=== PATIENT | female | born 1950 | race African-American/Black ===

== ENCOUNTER 2016-06-14 08:00 | Outpatient (RCR) | payer OTHER ==
[~2016-06-14 08:00] MED LIST: BLACK COHOSH40 MG PO; CALCIUM 600MG+D1 TAB PO; FERROUS SULFATE65 MG PO; MASON NATURAL1200 MG PO; MULTI VITAMINS1 TAB PO; PHARMASSURE GA500 MG PO; VITAMIN A10k; VITAMIN C500 MG PO
== END 2016-07-05 | disposition home or self-care (01) ==
LOC: WSST
DX: R13.13 Dysphagia, pharyngeal phase (principal); R74.0 Nonspecific elevation of levels of transaminase and lactic acid dehydrogenase [LDH]

== ENCOUNTER 2017-10-03 08:45 | Outpatient (RCR) | payer MEDICARE, OTHER | END 2017-10-23 | disposition home or self-care (01) | LOC: WSST | DX: K22.4 Dyskinesia of esophagus (principal); R13.12 Dysphagia, oropharyngeal phase; M33.20 Polymyositis, organ involvement unspecified | CPT/HCPCS: G8996-GN; G8997-GN ==

== ENCOUNTER 2017-12-25 10:00 | Outpatient (RCR) | payer MEDICARE, OTHER | END 2018-01-22 | disposition home or self-care (01) | LOC: WSST | DX: R13.12 Dysphagia, oropharyngeal phase (principal); M33.20 Polymyositis, organ involvement unspecified; K22.4 Dyskinesia of esophagus ==

== ENCOUNTER 2022-06-27 20:17 | Observation (INO) | payer MEDICARE, OTHER ==
[~2022-06-27] VITALS: Ht 160 cm; Wt 60.5 kg
[2022-06-27 22:50] VITALS: BP 111/77; PULSE 102; TEMP 98.6
[2022-06-27] MEDS ORDERED: COZAAR100 MG PO (23:01)
[2022-06-27] MEDS ORDERED: PREDNISONE5 MG/5 M1 PO (23:01)
[2022-06-27] MEDS ORDERED: IMURAN 50MG TAB50 MG PO (23:02)
--- NOTE | 2022-06-28 00:15 | NUR ---
Admitted to medical floor from [facility] ER-- did come here via private car, Admitted with RUL PNA, cough, VSS, afebrile , on RA, has INT to left wrist. Has PORT that is used for her monday weekly chemotherapy. Daughter at her bedside. Corina ODONNELL called- will be up to write orders. Did have 2gm Cefipime IV in the ER at [facility].
[2022-06-28 03:09] VITALS: BP 147/80; PULSE 79; TEMP 97.4
--- NOTE | 2022-06-28 05:42 | NUR ---
Quiet night- o2 sats 95% on RA, afebrile, Up to bathroom-voiding clear yellow urine.IV fluids of NS at 75CC/hr.
[2022-06-28 06:45] LABS: BASO % 0.9 % (0.0-2.0); EOS % 0.4 % (0.0-4.0); GRAN # 1.6 K/mm3 (1.4-6.5); GRAN % 67.8 % (42.2-75.2); HEMATOCRIT 37.4 % (37.0-47.0); HEMOGLOBIN 12.5 g/dl (12.5-16.0); LYMPH # 0.6 K/mm3 (1.2-3.4); LYMPH % 25.2 % (20.0-51.0); MEAN CELL VOLUME 92 fl (80.0-100.0); MEAN CORPUSCULAR HEMOGLOBIN 31 pg (27-31); MEAN CORPUSCULAR HGB CONC 33 g/dl (33.0-37.0); MEAN PLATELET VOLUME 11.2 fl (7.4-10.4); MONO # 0.1 K/mm3 (0.1-0.6); MONO % 4.8 % (1.7-9.3); PLATELET COUNT 252 K/mm3 (130-400); RED BLOOD COUNT 4.08 M/mm3 (4.10-5.30); REDCELL DISTRIBUTION WIDTH-CV 15.9 % (11.5-14.5)
[2022-06-28 06:47] LABS: CALCIUM 8.9 mg/dL (8.4-10.2); CREATININE, serum 0.55 mg/dL (0.57-1.11); MAGNESIUM 2.1 mg/dL (1.6-2.6); POTASSIUM 3.7 mmol/L (3.5-4.5)
[2022-06-28 07:00] VITALS: BP 131/74; PULSE 74; TEMP 98.2
[2022-06-28] MEDS ORDERED: TAXOL30 IV (08:52)
--- NOTE | 2022-06-28 11:02 | NUR ---
Patient resting with eyes closed in bed. Shift assessment completed. Lungs diminished bilaterally in bases. Oxygen sat 96% on RA. No complaints of SOA, difficulty breathing, or pain. Port to L chest is CDI, IV on L forearm is CDI w/ no redness, swelling, or drainage. Patient does not display any needs or concerns at this time.
[2022-06-28 11:15] VITALS: BP 115/68; PULSE 93; TEMP 98.1
--- NOTE | 2022-06-28 12:11 | NUR ---
Initial visit: Pt was resting and content. Pt has no needs right now. Pt appreciated the visit. Special Effects Designer will follow up as needed
--- NOTE | 2022-06-28 14:36 | NUR ---
Program Assistant met with patient to discuss discharge plan. Patient lives alone in [place]. Patient goes to [facility] for primary care and medications. Patient advised she sees Dr. Acevedo. Patient also uses [facility] in for medications as needed. Patient does not use any DME and is independent with ADLS. Patient advised her sister, Tim (ph#[phone]) is her DPOA-HC. Patient plans to return home at time of discharge. Discharge Plan: Home
[2022-06-28 15:10] VITALS: BP 111/69; PULSE 80; TEMP 98.5
[2022-06-28 20:01] VITALS: BP 122/72; PULSE 83; TEMP 98.9
[2022-06-29 00:09] VITALS: BP 151/83; PULSE 69; TEMP 99
[2022-06-29 04:15] VITALS: BP 136/78; PULSE 73; TEMP 98.9
--- NOTE | 2022-06-29 05:12 | NUR ---
AT THE BEGINNING OF THE SHIFT THE PATIENT WAS COMPLAINING OF PAIN AT HER IV SITE. RN GOT A NEW IV SITE IN L FOREARM. AND OLD IV WAS REMOVED. WHEN RN WAS CONNECTING THE PATIENT BACK UP TO HER FLUIDS THE PATIENT STATED SHE HAD A PORT AND THAT THE ER NURSES TOLD THE PATIENT THAT THE PORT COULD NOT BE USED HERE IT IS ONLY FOR CHEMO. THIS RN TOLD THE PATIENT THAT WE SHOULD BE ABLE TO USE THE PORT SO NEXT TIME SHE NEEDS A NEW ACCESS TO MAKE SURE SHE MENTINONS IT. PT ABLE TO AMBULATE WITH STAND BY ASSIST TO THE RESTROOM OVERNIGHT, VITAL SIGNS REMAINED WITHIN NORMAL LIMITS. PT DENIED PAIN. NO NEW REQUESTS AT THIS TIME AND PATIENT APPEARS TO CURRENTLY BE SLEEPING.
[2022-06-29 07:15] VITALS: BP 132/77; PULSE 63; TEMP 98
[2022-06-29 07:27] LABS: BASO % 0.5 % (0.0-2.0); EOS % 0.9 % (0.0-4.0); GRAN # 1.2 K/mm3 (1.4-6.5); HEMOGLOBIN 11.7 g/dl (12.5-16.0); LYMPH # 0.7 K/mm3 (1.2-3.4); LYMPH % 34.4 % (20.0-51.0); MEAN CELL VOLUME 91 fl (80.0-100.0); MEAN CORPUSCULAR HEMOGLOBIN 31 pg (27-31); MEAN CORPUSCULAR HGB CONC 33 g/dl (33.0-37.0); MONO # 0.2 K/mm3 (0.1-0.6); MONO % 9.3 % (1.7-9.3); PLATELET COUNT 244 K/mm3 (130-400); RED BLOOD COUNT 3.83 M/mm3 (4.10-5.30)
[2022-06-29 07:33] LABS: CALCIUM 8.8 mg/dL (8.4-10.2); CREATININE, serum 0.54 mg/dL (0.57-1.11); MAGNESIUM 1.9 mg/dL (1.6-2.6); POTASSIUM 3.9 mmol/L (3.5-4.5)
--- NOTE | 2022-06-29 07:40 | NUR ---
Patient resting with eyes closed in bed. Shift assessment completed. Lungs diminished in the bases bilaterally. Patients oxygen sat was 100% on RA w/ no pain or difficulty breathing. IV in L forearm is CDI with no redness, swelling, or drainage. Patient has no complaints at this time, call light left within reach.
[2022-06-29] MEDS ORDERED: AMOXICILLIN 8751 TAB PO (09:06)
--- NOTE | 2022-06-29 10:32 | NUR ---
Pt assessment complete. Pt is sitting up in the recliner upon entry, she is A/O x4. Her breathing is even and unlabored on RA. Pt denies SOB. No pain at this time. Denies any N/V. Pt discharging home today. POC discussed with patient. Call light within reach.
[2022-06-29 11:12] VITALS: BP 126/79; PULSE 80; TEMP 97.5
--- NOTE | 2022-06-29 12:26 | NUR ---
Discharge paperwork and instructions reviewed with patient, all questions answered at this time. IV to LFA dc'd cathter tip intact. Pt wheeled out of facility at this time.
== END 2022-06-29 12:27 | disposition home or self-care (01) ==
LOC: MEDICAL 20:17
PROVIDERS: Student in an Organized Health Care Education/Training Program; ADMIT Internal Medicine
DX: D70.9 Neutropenia, unspecified (principal); C50.919 Malignant neoplasm of unspecified site of unspecified female breast; A41.9 Sepsis, unspecified organism; J18.1 Lobar pneumonia, unspecified organism; H66.92 Otitis media, unspecified, left ear; C79.9 Secondary malignant neoplasm of unspecified site; R50.81 Fever presenting with conditions classified elsewhere; I10 Essential (primary) hypertension; Z79.899 Other long term (current) drug therapy
CPT/HCPCS: OP; G0378; G0379; J0692; J1650; J7030; J7512

== ENCOUNTER 2022-08-24 22:15 | Inpatient (IN) | payer MEDICARE, OTHER ==
[~2022-08-24] VITALS: Ht 160 cm; Wt 57.8 kg
[~2022-08-24 22:15] MED LIST changes: +AMOXICILLIN 8751 TAB PO; +COZAAR100 MG PO; +IMURAN 50MG TAB50 MG PO; +PREDNISONE5 MG/5 M1 PO; +TAXOL30 IV
--- NOTE | 2022-08-24 23:05 | NUR ---
Patient arrived to room 319 via stretcher from [facility]. Oriented to room/policy. VS stable. A&Ox3. Denies pain/nausea/shortness of breath at rest. States she does get short of breath with activity. O2@2L/NC. Admission assessment complete. INT to left [id number] without difficulty. Plan of care discussed for this shift to include meds/calling for questions/concerns. Verbalizes understanding. Call light in reach. Will monitor.
[2022-08-24 23:10] VITALS: BP 117/71; PULSE 82; TEMP 98.1
[2022-08-24] MEDS ORDERED: L-GLUTAMINE500 M5 PO (23:21)
[2022-08-24] MEDS ORDERED: ALPHA LIPOIC A600 M1 PO ×2 (23:23→23:57)
[2022-08-24] MEDS ORDERED: IMURAN 50MG TAB50 MG PO (23:42)
[2022-08-24] MEDS ORDERED: ZOFRAN8 MG PO (23:42)
[2022-08-24] MEDS ORDERED: LIDODERM 5% PATC1 EA TP (23:54)
[2022-08-24] MEDS ORDERED: COZAAR100 MG PO (23:55)
[2022-08-25] VITALS (9 sets, daily range): BP systolic 99–121; BP diastolic 52–69; PULSE 63–82; TEMP 97.6–98.3
--- NOTE | 2022-08-25 02:43 | NUR ---
Vancomycin Initial Dosing Pharmacy Note Ordering provider: Reji Alfredo MD Indication/duration: PNA x 7 days Relevant comorbidities: HTN, metastatic breast CA LABS: CTA - SCr = 0.44 from OSH (Capped at 0.7), multifocal ground glass opacities, O2 = 96% on 2L Recommendation: Will draw troughs and follow levels. Loading dose: 1.25 grams Maintenance dose: 750 mg every 12 hours Trough goal: 15-20 ug/mL
[2022-08-25 04:11] LABS: COLLECTION METHOD CLEAN CATCH
[2022-08-25 04:15] LABS: SQUAMOUS EPITHELIAL 0-2 /hpf (0-10); URINE APPEARANCE Clear (CLEAR/HAZY); URINE BACTERIA Rare /hpf (NONE SEEN); URINE COLOR Yellow (YELLOW)
[2022-08-25 04:16] LABS: PH 5.5 (5.0-8.5); URINE BLOOD Negative (NEGATIVE); URINE GLUCOSE Negative (NEGATIVE); URINE KETONE Negative (NEGATIVE); URINE NITRATE Negative (NEGATIVE); URINE PROTEIN(semi-quant) TRACE (NEGATIVE)
--- NOTE | 2022-08-25 05:48 | NUR ---
Patient had an uneventful night. O2@2L/NC with adequate SpO2. Denied pain/nausea. Short of breath with activity. TELE reporting SR> Left AC INT flushes well-no s/s of infiltration noted. Denies current questions/concerns. Call light in reach. Will monitor.
--- NOTE | 2022-08-25 08:48 | NUR ---
NIRAJ met with the patient to discuss discharge plan. The patient lives alone in [place]. She reports independence with ADLs and does not have any DME. She shares that she still works as a play ground shipping and receiving supervisor at [employer]. The patient's PCP is Dr. Peck on [address] and she obtains her medications on [address] or [facility]. The patient's DPOA-HC is in EMR and it designates her sister, Tim (ph#[phone]). Tim lives in [place]. The patient plans to return home upon discharge. She states that she does have good friend support that can transport her home upon discharge. No additional needs at this time. *Discharge plan: home*
[2022-08-25 10:18] LABS: HEMATOCRIT 38.3 % (37.0-47.0); HEMOGLOBIN 12.6 g/dl (12.5-16.0); MEAN CELL VOLUME 95 fl (80.0-100.0); MEAN CORPUSCULAR HEMOGLOBIN 31 pg (27-31); MEAN CORPUSCULAR HGB CONC 33 g/dl (33.0-37.0); MEAN PLATELET VOLUME 10.4 fl (7.4-10.4); PLATELET COUNT 511 K/mm3 (130-400); RED BLOOD COUNT 4.05 M/mm3 (4.10-5.30); REDCELL DISTRIBUTION WIDTH-CV 17.2 % (11.5-14.5)
[2022-08-25 10:27] LABS: CALCIUM 9.7 mg/dL (8.4-10.2); CREATININE, serum 0.72 mg/dL (0.57-1.11)
--- NOTE | 2022-08-25 11:13 | NUR ---
Initial visit: Pack Train Driver stopped by room on rounds. Pt was sitting in her chair, content. Pt has no needs right now. Pack Train Driver will follow up as needed.
--- NOTE | 2022-08-25 15:42 | NUR ---
Order for PICC received. This RN at bedside to receive consent patient informed this RN that she does have an implanted port. Dr. Odom contacted for permission to access port for vascular access at this time. Port accessed by this RN with sterile technique, 1 in needle, flushed well, good blood return noted, dressed with sterile tegrederm. . PICC line is no longer required at this time. Will monitor situation and if needed I will place a PICC line.
--- NOTE | 2022-08-25 17:12 | NUR ---
PATIENT IS PLEASANT. AXOX4. SBA TO THE RECLINER AND RESTROOM. PATIENT DOES NOT COMPLAIN OF ANY PAIN. LFA IV INFILTRATED. NOTIFIED MD AND GOT PERMISSION TO ACCESS L CHEST PORT. GETTING ABX THROUGH PORT. NO ISSUES THIS SHIFT. DOES NOT COMPLAIN OF ANY PAIN. SITTING COMFORTABLY IN RECLINER.
[2022-08-26] VITALS (11 sets, daily range): BP systolic 116–132; BP diastolic 55–90; PULSE 70–85; TEMP 97.7–98.7
[2022-08-26 07:30] LABS: BASO % 0.1 % (0.0-2.0); GRAN # 13.6 K/mm3 (1.4-6.5); GRAN % 89.6 % (42.2-75.2); HEMOGLOBIN 10.9 g/dl (12.5-16.0); LYMPH # 0.8 K/mm3 (1.2-3.4); LYMPH % 5.3 % (20.0-51.0); MEAN CELL VOLUME 95 fl (80.0-100.0); MEAN CORPUSCULAR HEMOGLOBIN 32 pg (27-31); MEAN CORPUSCULAR HGB CONC 33 g/dl (33.0-37.0); MEAN PLATELET VOLUME 10.5 fl (7.4-10.4); MONO # 0.6 K/mm3 (0.1-0.6); MONO % 3.9 % (1.7-9.3); PLATELET COUNT 486 K/mm3 (130-400); RED BLOOD COUNT 3.46 M/mm3 (4.10-5.30); REDCELL DISTRIBUTION WIDTH-CV 17.2 % (11.5-14.5)
[2022-08-26 07:32] LABS: HEMATOCRIT 32.8 % (37.0-47.0)
[2022-08-26 07:56] LABS: ALBUMIN 2.4 gm/dL (3.4-4.8); CALCIUM 9.3 mg/dL (8.4-10.2); CREATININE, serum 0.59 mg/dL (0.57-1.11); MAGNESIUM 2.4 mg/dL (1.6-2.6); PHOSPHOROUS 2.8 mg/dL (2.3-4.7); POTASSIUM 4.1 mmol/L (3.5-4.5)
--- NOTE | 2022-08-26 09:08 | NUR ---
PATIENT IS PLEASANT THIS MORNING EATING BREAKFAST WITH HER CAREGIVER. STILL ON IV ABX AND SOLUMEDROL 80MG. PATIENT DOES NOT COMPLAIN OF ANY PAIN. VSS. LEFT CHEST PORT IS ACCESSED. NO OTHER ISSUES AT THIS TIME. X3 BED RAILS UP. CALL LIGHT NEXT TO PATIENT
[2022-08-26 10:59] LABS: C-REACTIVE PROTEIN 1.99 mg/dL (0.00-0.50)
--- NOTE | 2022-08-26 17:58 | NUR ---
PATIENT IS DOING OKAY, BUT A LITTLE DISSAPPOINTED THAT SHE HAS TO STAY OVER THE WEEKEND. DOES NOT COMPLAIN OF ANY PAIN THIS SHIFT. VSS. PATIENT LIKES TO SIT IN THE RECLINER, MAY DECIDE TO SLEEP THERE. PATIENT IS SBA. VSS. NO ISSUES. PATIENT IS SITTING WITH BEDSIDE TABLE NEXT TO RECLINER WITH CALL LIGHT.
[2022-08-27] VITALS (9 sets, daily range): BP systolic 127–142; BP diastolic 59–72; PULSE 54–74; TEMP 97.5–97.6
--- NOTE | 2022-08-27 04:45 | NUR ---
ASSESSMENT COMPLETE FOR PROBATION OFFICER. PT DENIED GENERAL PAIN, CHEST PAIN, PALPITATIONS, SOB, N,V,D OR DIZZINESS. PT WALKED THE UNIT WITH THE AID WITH NO ISSUES. PT HAD AN OTHERWISE, PRETTY UNEVENTFUL NIGHT. CALL LIGHT WITHIN REACH.
[2022-08-27 06:37] LABS: HEMOGLOBIN 10.7 g/dl (12.5-16.0); MEAN CELL VOLUME 96 fl (80.0-100.0); MEAN CORPUSCULAR HEMOGLOBIN 32 pg (27-31); MEAN CORPUSCULAR HGB CONC 33 g/dl (33.0-37.0); MEAN PLATELET VOLUME 10.4 fl (7.4-10.4); PLATELET COUNT 482 K/mm3 (130-400); REDCELL DISTRIBUTION WIDTH-CV 17.7 % (11.5-14.5)
[2022-08-27 06:41] LABS: HEMATOCRIT 32.6 % (37.0-47.0)
[2022-08-27 07:01] LABS: ALBUMIN 2.5 gm/dL (3.4-4.8); CALCIUM 9.4 mg/dL (8.4-10.2); CREATININE, serum 0.57 mg/dL (0.57-1.11); MAGNESIUM 2.4 mg/dL (1.6-2.6); POTASSIUM 4.5 mmol/L (3.5-4.5)
[2022-08-27 07:50] LABS: BAND 4 % (0-10); LYMPHOCYTE 3 % (20.0-51.0); NEUTROPHILS 93 % (42.0-75.2)
[2022-08-27 07:51] LABS: ANISOCYTOSIS 1+; PLATELET ESTIMATE INCREASED (NORMAL)
[2022-08-27] MEDS ORDERED: CEFTIN500 MG PO (10:58)
[2022-08-27] MEDS ORDERED: DOXYCYCLINE 10100 MG PO (10:59)
[2022-08-27] MEDS ORDERED: PREDNISONE5 MG/5 M1 PO (11:25)
[2022-08-27] MEDS ORDERED: PROBIOTIC BLEN1 EACH PO (11:34)
--- NOTE | 2022-08-27 13:25 | NUR ---
Dr. Odom informs patient is referred for an oxygen assessment; may require home oxygen at discharge. Director Of Optimization confirms plan of care with RN. Director Of Optimization awaiting notification of patient need for home oxygen prior to patient discharge to home.
--- NOTE | 2022-08-27 14:13 | NUR ---
Assessment completed this am. Pt a/o x4. Sitting up in chair all morning. Exercise oximetry completed and patient will require home oxygen upon discharge. Denies pain or needs.
[2022-08-27] MEDS ORDERED: OXYGEN NASAL.CANN (15:12)
--- NOTE | 2022-08-27 15:33 | NUR ---
Logistics Planning Engineer met with patient to discuss oxygen agency options per Medicare requirement. 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 She ponders the companies presented to her, and she does wish to try [employer] in [place] as it is "down the street." Her second choice is [facility], as she has worked with them in the past and liked the services provided. She is in agreement for a third choice to be [facility], as is reliable over the weekend for new oxygen services. Logistics Planning Engineer left VM for [employer] in [place], requesting call back. Logistics Planning Engineer contacted [facility] in [place] and is informed that they cannot guarantee new oxygen delivered to the hospital due to the weekend. Logistics Planning Engineer contacted [facility] and left request for new referral with on-call staff. Logistics Planning Engineer awaiting call back for referral. Logistics Planning Engineer received telephone call from [facility] informing they can accept the new oxygen referral and will be able to deliver a portable concentrator to the hospital this afternoon, with follow up Monday at home to set up the home oxygen. Corina MCGHEE And Dr Odom updated; order received. Referral and order faxed to [facility]. Patient updated on plan of care and verbalizes understanding; she states awareness that she is recommended for oxygen on a continuous basis. She receives a telephone call and thanks this Logistics Planning Engineer. No further needs identified at this time. Patient to d/c to home today with 1 L home oxygen.
--- NOTE | 2022-08-27 18:35 | NUR ---
Port de accessed with 500 units heparin IV. Tip intact, patient tolerated well. Bandaid applied. No further needs expressed. Call light within reach
--- NOTE | 2022-08-27 19:00 | NUR ---
Home oxygen delivered. Discharge instructions reviewed with patient- verbalizes understanding. Pt escorted via w/c to private vehicle and discharged home with family.
--- NOTE | 2022-08-30 15:01 | NUR ---
protective services social worker faxed oximetry testing and discharge summary to [facility]
== END 2022-08-27 19:00 | disposition home or self-care (01) | DRG 205 ==
LOC: MEDICAL 22:15
PROVIDERS: Internal Medicine; Internal Medicine Pulmonary Disease; Nurse Practitioner Family; ADMIT Internal Medicine
DX: J70.4 Drug-induced interstitial lung disorders, unspecified (principal); J96.01 Acute respiratory failure with hypoxia; N39.0 Urinary tract infection, site not specified; Z20.822 Contact with and (suspected) exposure to COVID-19; I10 Essential (primary) hypertension; M06.9 Rheumatoid arthritis, unspecified; R77.8 Other specified abnormalities of plasma proteins; C50.911 Malignant neoplasm of unspecified site of right female breast; T45.1X5A Adverse effect of antineoplastic and immunosuppressive drugs, initial encounter; R79.89 Other specified abnormal findings of blood chemistry; Z66 Do not resuscitate; R53.1 Weakness; Z79.899 Other long term (current) drug therapy; Z88.8 Allergy status to other drugs, medicaments and biological substances
CPT/HCPCS: J1644; J1650; J2543; J2920; J3370; J7050; J7512